=== PATIENT | female | born 1975 | race Two or more races ===

== ENCOUNTER 2018-02-12 15:10 | Outpatient (CLI) | payer BC | END 2018-02-12 23:59 | disposition home or self-care (01) | LOC: WOU 15:10 | PROVIDERS: ATTEND Surgery | PROC: 0DW63CZ Revision of Extraluminal Device in Stomach, Percutaneous Approach (ICD-10-PCS; principal; 2018-02-12) | DX: K95.09 Other complications of gastric band procedure (principal); K91.0 Vomiting following gastrointestinal surgery | CPT/HCPCS: S2083 ==